=== PATIENT | male | born 1970 | race Two or more races ===

== ENCOUNTER 2018-11-13 21:30 | Emergency (ER) | payer MEDICAID ==
[~2018-11-13] VITALS: Ht 188 cm; Wt 163.3 kg
[~2018-11-13 21:30] MED LIST: ACET-1603 PO; BENA20TA70 PO; IBUP600T27 PO; LISI-646 PO
[2018-11-13] MEDS ORDERED: cloNIDine HCL 0.1 MG TAB PO ONE (22:15)
[2018-11-13 22:41] LABS: Basophils # (auto) 0.1 uL; Basophils % (auto) 1.2 % (0.0-2.0); Eosinophils # (auto) 0.4 uL; Eosinophils % (auto) 4.4 % (0.0-7.0); Hematocrit 43.4 % (41.0-53.0); Hemoglobin 14.7 g/dL (13.5-17.5); Lymphocytes # (auto) 1.3 uL; Lymphocytes % (auto) 15.9 % (10.0-50.0); Mean Corpuscular Hemoglobin 26.9 pg (28.0-32.0); Mean Corpuscular Hgb Conc. 33.9 g/dL (32.0-36.0); Mean Corpuscular Volume 79.4 fL (80.0-100.0); Monocytes # (auto) 0.6 uL; Monocytes % (auto) 7.5 % (0.0-12.0); Neutrophils # (auto) 5.9 uL; Platelet Count (auto) 238 10^3/uL (140-450); Red Blood Cells 5.47 10^6/uL (4.5-5.90); Red Cell Distribution Width 14.6 % (11.8-14.3); White Blood Cell 8.3 10^3/uL (4.4-10.8)
[2018-11-13 22:58] LABS: INR 0.96 (0.9-1.15); Partial Thromboplastin Time 27.6 sec (23.64-32.05)
[2018-11-13 23:06] LABS: Alkaline Phosphatase 90 U/L (45-117); Anion Gap 7 (5-15); BUN/Creatinine Ratio 18.9; Blood Urea Nitrogen 21 mg/dL (7-18); Carbon Dioxide 23 mmol/L (21-32); Chloride 111 mmol/L (98-107); GFR African American 92 mL/min; GFR Non-African American 76 mL/min; Glucose 90 mg/dL (74-106); Potassium 3.9 mmol/L (3.5-5.1); Sodium 141 mmol/L (136-145)
[2018-11-13 23:07] LABS: Alanine Aminotransferase 25 U/L (16-61); Albumin 3.2 g/dL (3.4-5.0); Aspartate Aminotransferase 18 U/L (15-37); Bilirubin, Total 0.3 mg/dL (0.2-1.0); Calcium 8.2 mg/dL (8.5-10.1); Total Protein 7.6 g/dL (6.4-8.2)
[2018-11-14 00:30] VITALS: BP 133/76
== END 2018-11-14 00:14 | disposition home or self-care (01) ==
LOC: EDBD 21:30 → ER 21:40
DX: I83.91 Asymptomatic varicose veins of right lower extremity (principal); I13.0 Hypertensive heart and chronic kidney disease with heart failure and stage 1 through stage 4 chronic kidney disease, or unspecified chronic kidney disease; N18.9 Chronic kidney disease, unspecified; I50.89 Other heart failure; F20.9 Schizophrenia, unspecified; Z87.440 Personal history of urinary (tract) infections; Z91.19 Patient's noncompliance with other medical treatment and regimen
CPT/HCPCS: 36415; 71045; 80053; 83880; 84484; 85025; 85610; 85730; 93005; 94761

== ENCOUNTER 2024-07-15 17:51 | Inpatient (IN) | payer MEDICAID ==
[~2024-07-15] VITALS: Ht 188 cm; Wt 162.7 kg
[~2024-07-15 17:51] MED LIST changes: +BENA-36 PO; +BENA20TA12 PO; -BENA20TA70 PO; +BUSP10TA31 PO; +CHOL50007 PO; +FURO20TA3 PO; +IBUP-1454 PO; -IBUP600T27 PO; -LISI-646 PO; +LISI20TA56 PO; +METO-289 PO; +POTA8TAB38 PO; +TIRZ7.5I2 SC; +VALA1TAB PO
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
[2024-07-15 18:18] LABS: Basophils # (auto) 0.1 10 ^3/uL (0-0.2); Basophils % (auto) 0.6 % (0.0-2.0); Eosinophils # (auto) 0.4 10 ^3/uL (0-0.8); Eosinophils % (auto) 3.4 % (0.0-7.0); Hematocrit 44.2 % (41.0-53.0); Hemoglobin 14.4 g/dL (13.5-17.5); Lymphocytes # (auto) 1.6 10 ^3/uL (0.4-5.4); Lymphocytes % (auto) 13.6 % (10.0-50.0); Mean Corpuscular Hemoglobin 27.2 pg (28.0-32.0); Mean Corpuscular Hgb Conc. 32.6 g/dL (32.0-36.0); Mean Corpuscular Volume 83.7 fL (80.0-100.0); Monocytes # (auto) 0.8 10 ^3/uL (0-1.3); Monocytes % (auto) 6.8 % (0.0-12.0); Neutrophils # (auto) 8.9 10 ^3/uL (1.6-8.6); Neutrophils % (auto) 75.6 % (37.0-80.0); Nucleated Red Blood Cells % 0.1 %; Platelet Count (auto) 269 10^3/uL (140-450); Red Blood Cells 5.28 10^6/uL (4.5-5.90); Red Cell Distribution Width 15.1 % (11.8-14.3); White Blood Cell 11.8 10^3/uL (4.4-10.8)
[2024-07-15 18:36] LABS: Alanine Aminotransferase 23 U/L (7-40); Albumin 4.1 g/dL (3.2-4.8); Alkaline Phosphatase 95 U/L (46-116); Anion Gap 12 (5-15); Aspartate Aminotransferase 18 U/L (13-40); BUN/Creatinine Ratio 17.8 (10.0-20.0); Calcium 9.3 mg/dL (8.7-10.4); Carbon Dioxide 22 mmol/L (20-31); Chloride 103 mmol/L (98-107); Glucose 95 mg/dL (74-106); Potassium 4.5 mmol/L (3.5-5.1); Sodium 137 mmol/L (136-145); Total Protein 7.1 g/dL (5.7-8.2)
[2024-07-15 18:37] LABS: Bilirubin, Total 0.4 mg/dL (0.2-1.0)
[2024-07-15 18:38] LABS: Blood Urea Nitrogen 27 mg/dL (9-23)
--- NOTE | 2024-07-15 18:51 | ECG ---
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
--- NOTE | 2024-07-15 19:13 | DVH ---
CHEST RADIOGRAPH Indication: cp Technique: Single frontal view of the chest was obtained COMPARISON: CXRP on DOS: 03/04/21 FINDINGS: Lines and Tubes: None Lungs: Clear Pleura: No effusion. No pneumothorax. Cardiomediastinal contours: Unremarkable Bones: Unremarkable IMPRESSION: No abnormality demonstrated.
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
[2024-07-15] MEDS ORDERED: LORazepam 0.5 MG TAB PO PRN (23:15)
[2024-07-15] MEDS ORDERED: NITROGLYCERIN 0.4 MG SL TAB SL PRN (23:15)
[2024-07-15] MEDS ORDERED: MORPHINE SULFATE INJ 2 MG/ml SYRG IV PRN (23:15)
[2024-07-15] MEDS ORDERED: ACETAMINOPHEN 325 MG TAB PO PRN (23:15)
[2024-07-15] MEDS ORDERED: ONDANSETRON HCL 4 MG/2 ML VIAL IV PRN (23:15)
[2024-07-15 23:41] LABS: Magnesium 1.8 mg/dL (1.6-2.6)
[2024-07-15 23:42] LABS: Phosphorus 3.8 mg/dL (2.4-5.1)
[2024-07-16 03:58] LABS: Basophils # (auto) 0.1 10 ^3/uL (0-0.2); Basophils % (auto) 0.9 % (0.0-2.0); Eosinophils # (auto) 0.3 10 ^3/uL (0-0.8); Eosinophils % (auto) 3.3 % (0.0-7.0); Hematocrit 45.5 % (41.0-53.0); Hemoglobin 15.1 g/dL (13.5-17.5); Lymphocytes # (auto) 1.7 10 ^3/uL (0.4-5.4); Lymphocytes % (auto) 15.9 % (10.0-50.0); Mean Corpuscular Hemoglobin 27.9 pg (28.0-32.0); Mean Corpuscular Hgb Conc. 33.3 g/dL (32.0-36.0); Mean Corpuscular Volume 83.8 fL (80.0-100.0); Monocytes # (auto) 0.8 10 ^3/uL (0-1.3); Neutrophils # (auto) 7.5 10 ^3/uL (1.6-8.6); Neutrophils % (auto) 71.9 % (37.0-80.0); Platelet Count (auto) 285 10^3/uL (140-450); Red Blood Cells 5.43 10^6/uL (4.5-5.90); Red Cell Distribution Width 14.9 % (11.8-14.3); White Blood Cell 10.4 10^3/uL (4.4-10.8)
[2024-07-16 04:05] LABS: Chloride 102 mmol/L (98-107); Potassium 4.3 mmol/L (3.5-5.1); Sodium 137 mmol/L (136-145)
[2024-07-16 04:06] LABS: Anion Gap 8 (5-15); Carbon Dioxide 27 mmol/L (20-31)
[2024-07-16 04:07] LABS: Calcium 9.8 mg/dL (8.7-10.4)
[2024-07-16 04:11] LABS: BUN/Creatinine Ratio 14.1 (10.0-20.0); Glucose 96 mg/dL (74-106)
[2024-07-16] MEDS: ASPirin-EC 325mg tab PO ONE (04:21)
[2024-07-16] MEDS: FUROSEMIDE 40 MG/4 ML VIAL IV ONE (04:21)
[2024-07-16] MEDS: SODIUM CHLORIDE 0.9% 1,000 ML IV ONE (04:21)
[2024-07-16] MEDS: ATORVASTATIN 20 MG TAB PO ONE (04:22)
[2024-07-16] MEDS: NITROGLYCERIN 0.4 MG SL TAB SL ONE (04:22)
[2024-07-16 04:46] LABS: Blood Urea Nitrogen 25 mg/dL (9-23)
[2024-07-16 05:00] VITALS: BP 143/62; PULSE 65; RESP 20; TEMP 97.6; O2SAT 99
[2024-07-16] MEDS: ACYCLOVIR 400 MG TAB PO SCH (07:13)
[2024-07-16] MEDS: FUROSEMIDE 40 MG/4 ML VIAL IV SCH (07:24)
[2024-07-16 07:27] VITALS: PULSE 65; RESP 20; O2SAT 99
[2024-07-16] MEDS ORDERED: BUSP5TAB51 PO (07:55)
[2024-07-16] MEDS ORDERED: LOSA100T25 PO (07:55)
[2024-07-16] MEDS ORDERED: RISP0.5T45 PO (07:55)
[2024-07-16] MEDS ORDERED: ALL300T PO (07:55)
[2024-07-16] MEDS ORDERED: LOSA100T33 PO (07:55)
--- NOTE | 2024-07-16 07:57 | ECG ---
[facility] Test Date: 2024-07-15 Test Time: 20:55:36 Pat Name: JAE MAC Department: ER Room: [address] [place] [address] Gender: M Clothing Man: ER : 1970 Requested By: BIRD KAY Order Number: [id number] Reading MD: Mickey Ceballos Measurements Intervals [place] Rate: 67 P: 31 WI: 158 QRS: -15 QRSD: 131 T: 47 QT: 395 QTc: 417 Interpretive Statements Sinus rhythm Nonspecific intraventricular conduction delay Baseline wander in lead(s) V4,V6 Electronically Signed On 07-16-2024 21:09:35 PDT by Mickey Ceballos Please click the below link to view image of tracing.
--- NOTE | 2024-07-16 07:58 | ECG ---
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
[2024-07-16 08:00] VITALS: BP 157/82; PULSE 60; RESP 17; TEMP 98.6; O2SAT 98
[2024-07-16] MEDS: MORPHINE SULFATE INJ 2 MG/ml SYRG IV PRN (08:42)
[2024-07-16] MEDS: ENOXAPARIN SOD 40 MG/0.4 ML SYRINGE SC SCH (08:59)
[2024-07-16] MEDS: busPIRone HCL 10 MG TAB PO SCH (08:59)
[2024-07-16] MEDS: ALLOPURINOL 100 MG TAB PO SCH (09:01)
[2024-07-16] MEDS: LOSARTAN POTASSIUM 50 MG TAB PO SCH (09:01)
[2024-07-16] MEDS: ASPirin 81 mg TAB PO SCH (09:02)
[2024-07-16] MEDS: risperiDONE 1 MG TAB PO SCH (09:02)
[2024-07-16] MEDS: METOPROLOL SUCCINATE XL 50 MG TAB PO SCH (09:04)
[2024-07-16] MEDS: hydroCHLOROthiazide 25 MG TAB PO SCH (10:45)
[2024-07-16] MEDS: ERGOCALCIFEROL 50,000 UNIT(1.25MG) CAP PO SCH (10:45)
[2024-07-16 11:12] LABS: Urine Bacteria None Seen /hpf (None Seen)
[2024-07-16 11:22] LABS: Urine Blood Negative /uL (Negative); Urine Clarity Clear (Clear); Urine Color Colorless (Yellow); Urine Protein, UAD Negative (Negative); Urine Specific Gravity 1.006 (1.001-1.035); Urine Squamous Epithelial Cell FEW /hpf (<5); Urine Urobilinogen Normal (Negative); Urine WBC 2 /HPF (0-3)
[2024-07-16 11:39] LABS: Amphetamine Screen, Urine Neg (NEGATIVE); Barbiturate Scree,Urine Neg (NEGATIVE); Benzodiazephine Screen, Urine Neg (NEGATIVE); Cannabinoid Screen, Urine Neg (NEGATIVE); Cocaine Screen, Urine Neg (NEGATIVE); Opiate Scree,Urine Neg (NEGATIVE); Phencyclidine Screen, Urine Neg (NEGATIVE)
[2024-07-16 13:00] VITALS: BP 108/65; PULSE 65; RESP 17; TEMP 98; O2SAT 98
--- NOTE | 2024-07-16 14:55 | DVHPN2 ---
Progress Note - Dictate Date Seen: Jul 16, 2024 Medical Necessity Reason Pt with a Central, PICC or Fol: No Subjective Clinically stable. Pain-free. Troponins negative. Waiting for Cardiology eval and echocardiogram. vital signs Vital Sign Date Time Temp Pulse Resp B/P (MAP) Pulse Ox O2 Delivery O2 Flow Rate FiO2 07/16/24 13:00 98.0 65 17 108/65 (79) 98 98.0 07/16/24 07:27 Room Air* 0 21 medications Current Medications Medications Dose Ordered Sig/Reji Route Start Time Stop Time Status Last Admin Dose Admin Lorazepam 0.5 mg Q6HP PRN PO 07/15/24 23:15 Docusate Sodium 100 mg BIDPRN PRN PO 07/15/24 23:15 Acetaminophen 650 mg Q6HP PRN PO 07/15/24 23:15 Ondansetron HCl 4 mg Q4HP PRN IV 07/15/24 23:15 Morphine Sulfate 2 mg Q4HPRN PRN IV 07/15/24 23:15 07/16/24 08:42 2 MG Enoxaparin Sodium 40 mg DAILY SC 07/16/24 10:00 07/16/24 08:59 40 MG Nitroglycerin 0.4 mg Q5MINP PRN SL 07/15/24 23:15 Morphine Sulfate 2 mg Q30M PRN IV 07/15/24 23:15 Aspirin 81 mg DAILY PO 07/16/24 10:00 07/16/24 09:02 81 MG Atorvastatin Calcium 40 mg HS PO 07/16/24 22:00 Furosemide 40 mg BIDD IV 07/16/24 06:00 07/16/24 07:24 40 MG Acyclovir 400 mg Q8HR PO 07/16/24 06:00 07/16/24 13:55 400 MG Ergocalciferol 50,000 unit Q7D PO 07/16/24 10:00 07/16/24 10:45 50,000 UNIT Metoprolol Succinate 50 mg DAILY PO 07/16/24 10:00 Losartan Potassium 100 mg DAILY PO 07/16/24 10:00 07/16/24 09:01 100 MG Hydrochlorothiazide 25 mg DAILY PO 07/16/24 10:00 07/16/24 10:45 25 MG Allopurinol 100 mg DAILY PO 07/16/24 10:00 07/16/24 09:01 100 MG Buspirone HCl 10 mg Q12HR PO 07/16/24 10:00 07/16/24 08:59 10 MG Risperidone 1 mg DAILY PO 07/16/24 10:00 07/16/24 09:02 1 MG laboratory and microbiology Laboratory Tests 07/16/24 03:45 Test 07/16/24 03:45 Range/Units Serum Glucose 96 74-106 mg/dL Assessment/Plan Appears pain in the chest region possibly musculoskeletal in nature versus gastric reflux disease. Start him on proton pump inhibitor. Educated and counseled regarding diet exercise and weight loss. Otherwise wait for Cardiology recommendations. Continue rest of supportive care and treatment. Further clinical management per clinical course. Problems(with codes): (1) Morbid obesity (2) Hypertension (3) Acute renal insufficiency (4) Chest pain Plan discussed with: Other RICKY STAFFORD MD Jul 16, 2024 14:55
[2024-07-16 16:39] VITALS: BP 114/59; PULSE 61; RESP 18; TEMP 98; O2SAT 100
[2024-07-16] MEDS: ATORVASTATIN 20 MG TAB PO SCH (21:39)
[2024-07-17] VITALS (8 sets, daily range): BP systolic 101–139; BP diastolic 54–72; PULSE 50–85; RESP 16–18; TEMP 97–98; O2SAT 93–97
[2024-07-17] MEDS: DOCUSATE SOD 100 MG CAP PO PRN (09:20)
[2024-07-17] MEDS ORDERED: PROPOFOL 10 MG/ML 20 ML IV ONE (12:18)
[2024-07-17] MEDS ORDERED: ONDANSETRON HCL 4 MG/2 ML VIAL ONE (12:18)
[2024-07-17] MEDS ORDERED: MIDAZOLAM HCL 2MG/2ML 2ml VIAL (1mg/ml) ONE (12:18)
[2024-07-17] MEDS ORDERED: GLYCOPYRROLATE 0.2 MG/ML 1ML VIAL ONE (12:18)
[2024-07-17] MEDS ORDERED: KETAMINE 50mg/ML 1ml syringe ONE (12:18)
--- NOTE | 2024-07-17 12:56 | DVHSR ---
APPROVED REPORT EXAM: Two-dimensional and M-mode echocardiogram with Doppler and color Doppler. Mitral Valve MitralMitral Stenosis E/A ratio0.02D MVAcm2 LEFT VENTRICLE The left ventricle is normal size. There is normal left ventricular wall thickness. The left ventricle is normal in structure and function. Left ventricle systolic function is normal. The Ejection Fraction is 55%. RIGHT VENTRICLE The right ventricle is normal size. There is normal right ventricular wall thickness. The right ventricular systolic function is normal. ATRIA The left atrium size is normal. The right atrium size is normal. The interatrial septum is intact with no evidence for an atrial septal defect. MITRAL VALVE The mitral valve is normal in structure and function. There is no evidence of mitral valve prolapse. There is no mitral valve stenosis. There is no mitral valve regurgitation noted. PULMONIC VALVE The pulmonary valve is normal in structure and function. There is no pulmonic valvular regurgitation. There is no pulmonic valvular stenosis. TRICUSPID VALVE The tricuspid valve is normal in structure and function. There is no tricuspid valve regurgitation noted. There is no tricuspid valve prolapse or vegetation. There is no tricuspid valve stenosis. AORTIC VALVE The aortic valve is normal in structure and function. No aortic regurgitation is present. There is no aortic valvular stenosis. There is no aortic valvular vegetation. GREAT VESSELS The aortic root is normal in size. PERICARDIAL EFFUSION There is a no pericardial effusion. Conclusion There is normal left ventricular wall thickness. The left ventricle is normal in structure and function. Left ventricle systolic function is normal. The Ejection Fraction is 55-60%. There is no gross valvular pathology There is no pericardial effusion.
[2024-07-17] MEDS ORDERED: PANT40TA57 PO (15:28)
[2024-07-17] MEDS ORDERED: ATOR20TA50 PO (15:28)
[2024-07-17] MEDS ORDERED: ASPI-325 PO (15:28)
--- NOTE | 2024-07-17 15:33 | DVHDS2 ---
Discharge Summary Date of Admission Jul 15, 2024 at 23:12 Date of Discharge: Jul 17, 2024 Labs/Diagnostic Data: Laboratory Results Test 07/16/24 10:00 07/16/24 03:45 07/15/24 21:03 07/15/24 17:58 Urine Color Colorless (Yellow) Urine Clarity Clear (Clear) Urine pH 5.0 (5.0-9.0) Urine Specific [place] 1.006 (1.001-1.035) Urine Protein Negative (Negative) Urine Ketones Negative (Negative) Urine Blood Negative /uL (Negative) Urine Nitrite Negative (Negative) Urine Bilirubin Negative (Negative) Urine Urobilinogen Normal mg/dL (Negative) Urine Leukocyte Esterase Trace /uL (Negative) Urine RBC <1 /hpf (0 - 3) Urine Microscopic WBC 2 /HPF (0-3) Urine Squamous Epithelial Cells Few /hpf (<5) Urine Bacteria None seen /hpf (None Seen) Urine Glucose Normal mg/dL (Normal) Urine Opiates Screen Neg (NEGATIVE) Urine Fentanyl Screen Neg (NEGATIVE) Urine Barbiturates Screen Neg (NEGATIVE) Urine Phencyclidine Screen Neg (NEGATIVE) Urine Amphetamines Screen Neg (NEGATIVE) Urine Benzodiazepines Screen Neg (NEGATIVE) Urine Cocaine Screen Neg (NEGATIVE) Urine Cannabinoids Screen Neg (NEGATIVE) White Blood Count 10.4 10^3/uL (4.4-10.8) Red Blood Count 5.43 10^6/uL (4.5-5.90) Hemoglobin 15.1 g/dL (13.5-17.5) Hematocrit 45.5 % (41.0-53.0) Mean Corpuscular Volume 83.8 fL (80.0-100.0) Mean Corpuscular Hemoglobin 27.9 pg (28.0-32.0) Mean Corpuscular Hemoglobin Concent 33.3 g/dL (32.0-36.0) Red Cell Distribution Width 14.9 % (11.8-14.3) Platelet Count 285 10^3/uL (140-450) Mean Platelet Volume 7.6 fL (6.9-10.8) Neutrophils (%) (Auto) 71.9 % (37.0-80.0) Lymphocytes (%) (Auto) 15.9 % (10.0-50.0) Monocytes (%) (Auto) 8.0 % (0.0-12.0) Eosinophils (%) (Auto) 3.3 % (0.0-7.0) Basophils (%) (Auto) 0.9 % (0.0-2.0) Neutrophils # (Auto) 7.5 10 ^3/uL (1.6-8.6) Lymphocytes # (Auto) 1.7 10 ^3/uL (0.4-5.4) Monocytes # (Auto) 0.8 10 ^3/uL (0-1.3) Eosinophils # (Auto) 0.3 10 ^3/uL (0-0.8) Basophils # (Auto) 0.1 10 ^3/uL (0-0.2) Nucleated Red Blood Cells 0.0 % Sodium Level 137 mmol/L (136-145) Potassium Level 4.3 mmol/L (3.5-5.1) Chloride Level 102 mmol/L (98-107) Carbon Dioxide Level 27 mmol/L (20-31) Anion Gap 8 (5-15) Blood Urea Nitrogen 25 mg/dL (9-23) Creatinine 1.77 mg/dL (0.700-1.30) Glomerular Filtration Rate Calc 46 mL/min (>90) BUN/Creatinine Ratio 14.1 (10.0-20.0) Serum Glucose 96 mg/dL (74-106) Calcium Level 9.8 mg/dL (8.7-10.4) Phosphorus Level 3.8 mg/dL (2.4-5.1) Magnesium Level 1.8 mg/dL (1.6-2.6) Troponin I High Sensitivity 4 ng/L (</=54) Triglycerides Level 150 mg/dL (< 150) Cholesterol Level 151 mg/dL (< 200) LDL Cholesterol 103 mg/dL (< 100) HDL Cholesterol 32 mg/dL (40-59) Thyroid Stimulating Hormone (TSH) 1.27 uIU/mL (0.55-4.78) Hemoglobin A1c 5.1 % A1C (<5.7) Lactic Acid Level 0.9 mmol/L (0.4-2.0) Total Bilirubin 0.4 mg/dL (0.2-1.0) Aspartate Amino Transferase (AST) 18 U/L (13-40) Alanine Aminotransferase (ALT) 23 U/L (7-40) Alkaline Phosphatase 95 U/L (46-116) B-Type Natriuretic Peptide 12.09 pg/mL (0-100) Total Protein 7.1 g/dL (5.7-8.2) Albumin 4.1 g/dL (3.2-4.8) Vitamin B12 Level 295 pg/mL (211-911) Vitamin D 25-Hydroxy 51.1 ng/mL (30.0-100) Other Laboratory Tests 07/16/24 03:45 Brief Hx & Hospital Course: Antwan Johnson is a 53-year-old male patient who presents to ED referred by primary care physician because of chief complaint of stabbing retrosternal chest pain which presented in functional class IV (while he was sleeping), with intensity 10/10 pain, which is worse when lying down and while taking deep breath of air, but improves with pressure on sternal, associated with dyspnea, bilateral hand numbness and bilateral leg cramps. In outpatient clinic EKG was completed which showed early repolarization. Patient reports having this pain previously approximately four months, but never with such severe pain and at rest. Per patient he presented approximately five years ago a stress test which was negative when he was diagnosed with congestive heart failure. Denies palpitation, syncope, nausea, vomiting, diarrhea, dysuria, bleeding, flu-like symptoms, recent travel, sick contacts and motor or sensory deficits. He is admitted and ruled out for any acute coronary ischemia with negative cardiac enzymes and normal EKG and telemetry. He had an echocardiogram and evaluated by corn lab technician. Echo did not show any significant wall motion abnormalities. [place] his symptoms possibly related to gastroesophageal reflux disease. Therefore patient is advised to finish a trial of proton pump inhibitor. Otherwise while in the hospital patient's symptoms resolved he is back to baseline normal status. Therefore it is felt he could be safely discharged home. I have talked with the patient regarding his hospital diagnosis, echocardiogram results, treatment he received, discharge medications and follow-up plan of care. He has verbalized understanding of these and agree with the care plan as outlined. Operations or Procedures EXAM: Two-dimensional and M-mode echocardiogram with Doppler and color Doppler. Mitral Valve Mitral Mitral Stenosis E/A ratio 0.0 2D MVA cm2 LEFT VENTRICLE The left ventricle is normal size. There is normal left ventricular wall thickness. The left ventricle is normal in structure and function. Left ventricle systolic function is normal. The Ejection Fraction is 55%. RIGHT VENTRICLE The right ventricle is normal size. There is normal right ventricular wall thickness. The right ventricular systolic function is normal. ATRIA The left atrium size is normal. The right atrium size is normal. The interatrial septum is intact with no evidence for an atrial septal defect. MITRAL VALVE The mitral valve is normal in structure and function. There is no evidence of mitral valve prolapse. There is no mitral valve stenosis. There is no mitral valve regurgitation noted. PULMONIC VALVE The pulmonary valve is normal in structure and function. There is no pulmonic valvular regurgitation. There is no pulmonic valvular stenosis. TRICUSPID VALVE The tricuspid valve is normal in structure and function. There is no tricuspid valve regurgitation noted. There is no tricuspid valve prolapse or vegetation. There is no tricuspid valve stenosis. AORTIC VALVE The aortic valve is normal in structure and function. No aortic regurgitation is present. There is no aortic valvular stenosis. There is no aortic valvular vegetation. GREAT VESSELS The aortic root is normal in size. PERICARDIAL EFFUSION There is a no pericardial effusion. Conclusion There is normal left ventricular wall thickness. The left ventricle is normal in structure and function. Left ventricle systolic function is normal. The Ejection Fraction is 55-60%. There is no gross valvular pathology There is no pericardial effusion. SIGNED BY: EVANGELINA BOLAÑOS MD SIGNED DATE/TIME: 07/17/24 1256 Condition at Discharge: Stable Final Diagnosis/Problems List Chest pain ruled out for acute coronary ischemia, possible GERD Discharge Disposition: Home Discharge Instruct/Medications Diet: Consistent carbohydrate, Cardiac 2g Na,low cholest Activity: No Restrictions, As Tolerated Follow Up/Referral: Dr. Bolaños corn lab technician after two weeks for outpatient evaluation of chest pain including stress test as appropriate. Primary care physician 1-2 weeks for referral to corn lab technician Medications: As prescribed and home medications as you were taking. New Medications: Pantoprazole Sodium Sesquihydr (Pantoprazole Sodium Dr) 40 Mg Tab 40 MG PO DAILY, #60 TAB Aspirin (Aspirin Low Dose) 81 Mg Tab 81 MG PO DAILY, #60 TAB Atorvastatin Calcium (Atorvastatin Calcium) 20 Mg Tab 40 MG PO HS, #60 TAB Continued Medications: Allopurinol (Zyloprim Tablet) 300 Mg Tb 1 TAB PO DAILY, #30 TAB 5 Refills Buspirone HCl (Buspirone HCl) 10 Mg Tab 1 TAB PO BID for 30 Days, #60 Cholecalciferol (Vitamin D3) 5,000 Unit Cap 1 CAP PO DAILY for 100 Days, #100 Losartan Potassium & Hydrochlo (Hyzaar) 1 Tab Tab 1 TAB PO DAILY for 100 Days, #100 [LOSARTAN-HCTZ 100-25 MG] Metoprolol Succinate (Metoprolol Succinate Er) 50 Mg Tab 1 TAB PO DAILY for 100 Days, #100 Risperidone (Risperidone) 0.5 Mg Tab 1 TAB PO BID, #60 TAB 1 Refill Tirzepatide (Zepbound) 7.5 Mg/0.5 Ml Inj SC UD for 28 Days, #2 Valacyclovir Hcl (Valtrex) 1 Gm Tab 1 TAB PO DAILY for 30 Days, #30 Discharge Statement: "Patient was advised to return to the ER or call 911 if any headaches, dizziness, shortness of breath, chest pain, abdominal pain, bleeding, fevers, or worsening of medical condition. Patient was counseled about treatment plan, medications, possible side effects, patientverbalized understanding. All questions were answered to the best of my ability. This discharge took greater then 30 minutes in planning, reviewing documentation, counseling the patient, and discussing with other team members." ASSESSMENT ASSESSMENT Assessment Chest pain ruled out for acute coronary ischemia, possible GERD RICKY STAFFORD MD Jul 17, 2024 15:33
--- NOTE | 2024-07-17 16:19 | DVHINCON2 ---
DATE OF CONSULTATION: 07/17/2024 REFERRING PHYSICIAN: Dr. Ryan Perikns. CONSULTING PHYSICIAN: Dr. Bolaños. INDICATION: Chest pain . HISTORY OF PRESENT ILLNESS: The patient is a 53-year-old male with a history of hypertension and CKD. He was sent to the hospital by his primary care physician after he was noted to have markedly elevated blood pressure and was also complaining of chest pain. He had abnormal EKG. He describes the chest pain as sharp, nonradiating. TN has been ruled out with serial negative troponin. Currently, blood pressure better controlled. He is currently chest pain free. PAST MEDICAL HISTORY: * Hypertension. * Dyslipidemia. * CKD. MEDICATIONS: Per med rec. ALLERGIES: No known drug allergies. PHYSICAL EXAMINATION: GENERAL: Alert and awake, in no form of cardiopulmonary distress. VITAL SIGNS: Blood pressure 139/72, pulse 62 per minute, saturation 93%. HEENT: No carotid bruits. No jugular venous distention. CHEST: Bilateral air entry. CARDIOVASCULAR: Precordial and carotid pulses palpable. Normal S1, S2. Regular rate and rhythm. No gallop or rubs. EXTREMITIES: No peripheral edema. DIAGNOSTIC DATA: CBC is normal. Sodium 137, potassium 4.3, creatinine is 1.7. Total cholesterol 151, triglycerides 150, LDL is 103, HDL is 32. ASSESSMENT: * Hypertension. Currently, blood pressure better controlled. * Chest pain, atypical. Myocardial infarction is ruled out with serial negative troponin, doubt acute coronary artery syndrome. * Dyslipidemia. RECOMMENDATIONS: * Continue with aspirin. * Continue statin therapy. * We will review echo once completed. * Continue panel monitor. * If echo unremarkable, no further inpatient cardiac workup indicated. Thank you for allowing me to participate in the care of this patient. MD SAMPSON Blair/BENITA/COLBY TID: [id number] RECEIPT: [id number]
== END 2024-07-17 18:49 | disposition home or self-care (01) | DRG 243 ==
LOC: ER 17:51 → OVERFLOW 23:12 → TELE-WESTW 07-16 21:40
PROVIDERS: ADMIT Hospitalist; ATTEND Hospitalist
DX: K21.9 Gastro-esophageal reflux disease without esophagitis (principal); I13.0 Hypertensive heart and chronic kidney disease with heart failure and stage 1 through stage 4 chronic kidney disease, or unspecified chronic kidney disease; B00.89 Other herpesviral infection; I50.9 Heart failure, unspecified; E11.22 Type 2 diabetes mellitus with diabetic chronic kidney disease; N18.30 Chronic kidney disease, stage 3 unspecified; E78.5 Hyperlipidemia, unspecified; M10.9 Gout, unspecified; E66.01 Morbid (severe) obesity due to excess calories; J44.9 Chronic obstructive pulmonary disease, unspecified; F20.9 Schizophrenia, unspecified; Z68.42 Body mass index [BMI] 45.0-49.9, adult; Z79.899 Other long term (current) drug therapy
CPT/HCPCS: 36415; 71045; 80048; 80053; 80061; 80307; 81001; 82306; 82607; 83036; 83605; 83735; 83880; 84100; 84443; 84484; 85025; 93005; 93306; G0378; J2250; J2405; J2704